=== PATIENT | female | born 1960 | race Caucasian/White ===

== ENCOUNTER → 2016-06-25 | Outpatient (CLI) | payer BC ==
--- NOTE | 2016-06-26 08:33 | MM ---
Reason for exam: screening (asymptomatic). Last mammogram was performed 1 year and 1 month ago. History: Patient is postmenopausal. Benign left US cyst aspiration of the left breast, June 03, 2007. Took hormonal contraceptives for 10 years beginning at age 24. Taking other hormone for 6 years beginning at age 42. Physical Findings: A clinical breast exam by your physician is recommended on an annual basis and results should be correlated with mammographic findings. MG Screening Mammo w CAD Bilateral CC and MLO view(s) were taken. XCCL view(s) were taken of the left breast. Prior study comparison: May 20, 2015, bilateral MG screening mammo w CAD. April 27, 2014, bilateral MG screening mammo w CAD. There are scattered fibroglandular densities. Finding: There are typically benign round calcifications. There is no discrete abnormality. No significant changes in finding since May 20, 2015 and April 27, 2014. ASSESSMENT: Benign, BI-RAD 2 RECOMMENDATION: Routine screening mammogram of both breasts in 1 year.
== END | disposition home or self-care (01) ==
LOC: RADMAMWWP 08:08
PROVIDERS: ATTEND Obstetrics & Gynecology
DX: Z12.31 Encounter for screening mammogram for malignant neoplasm of breast (principal)

== ENCOUNTER → 2016-12-07 | Outpatient (CLI) | payer BC ==
[2016-12-07 16:30] VITALS: BP 125/87; PULSE 84; RESP 16; TEMP 98.1; BMI 41.2
[2016-12-07 16:51] LABS: EKG EKG PERFORMED
[2016-12-07 17:11] LABS: CH 29.3; CHCM 31.9; HCT 40.8 % (34.0-46.0); HDW 2.18; HGB 13.6 gm/dL (11.4-16.0); MCH 30.7 pg (25.0-35.0); MCHC 33.3 g/dL (31.0-37.0); MCV 92.2 fL (80.0-100.0); RBC 4.43 m/uL (3.80-5.40); RDW 13.1 % (11.5-15.5); WBC 8.4 k/uL (3.8-10.6)
[2016-12-07 17:25] LABS: ALT 28 U/L (9-52); AST 20 U/L (14-36); Alkaline Phosphatase 76 U/L (38-126); Anion Gap 9 mmol/L; Blood Urea Nitrogen 14 mg/dL (7-17); Calcium 9.4 mg/dL (8.4-10.2); Carbon Dioxide 27 mmol/L (22-30); Chloride 106 mmol/L (98-107); Glucose 98 mg/dL (74-99); Non-African American GFR(MDRD) >60 (>60 ml/min/1.73 sqM); Potassium 4.1 mmol/L (3.5-5.1); Sodium 142 mmol/L (137-145); Total Bilirubin 0.4 mg/dL (0.2-1.3); Total Protein 6.6 g/dL (6.3-8.2)
[2016-12-07 18:12] LABS: Vitamin B12 472 pg/mL (239-931)
[2016-12-07 21:06] LABS: Hemoglobin A1C 6.4 % (4.2-6.1)
== END | disposition home or self-care (01) ==
LOC: BARWHC3 16:13
PROVIDERS: ATTEND Surgery
DX: Z01.818 Encounter for other preprocedural examination (principal); E66.01 Morbid (severe) obesity due to excess calories; E44.0 Moderate protein-calorie malnutrition; E55.9 Vitamin D deficiency, unspecified; Z68.41 Body mass index [BMI] 40.0-44.9, adult
CPT/HCPCS: 80053; 82306; 82607; 83036; 84443; 85027; 93005; 99201

== ENCOUNTER 2017-01-01 10:57 | Day surgery (SDC) | payer BC ==
[2016-12-30 10:10] VITALS: BMI 39.4
[2017-01-01 12:31] VITALS: RESP 16; TEMP 98.4
[2017-01-01] MEDS ORDERED: LACTATED RINGERS 1,000 ML IV ONE (12:32)
[2017-01-01] MEDS ORDERED: LIDOCAINE 1% 20 ML VIAL (10MG/ML) FOR IV START INTRADERMA ONE (12:32)
[2017-01-01] MEDS ORDERED: PROPOFOL 10 MG/ML 20 ML VIAL IV ONE (13:01)
--- NOTE | 2017-01-01 13:07 | P.GSHP ---
History of Present Illness H&P Date: 01/01/17 Chief Complaint: GERD This is a 56-year-old female for from Dr. Ranjana Knutson. Patient is a patient of GERD. She presents today for EGD. Past Medical History Past Medical History: Asthma, Hyperlipidemia, Osteoarthritis (OA), Thyroid Disorder History of Any Multi-Drug Resistant Organisms: None Reported Past Surgical History: Joint Replacement, Orthopedic Surgery, Tonsillectomy Additional Past Surgical History / Comment(s): BILAT TKA several revisional knee surgeries, left shoulder scope, cyst from right writst removed. PLATE TO RLE. BLE TENDON REPLACEMENT. COLONOSCOPY, EGD Past Anesthesia/Blood Transfusion Reactions: No Reported Reaction Smoking Status: Never smoker - Past Family History Father Family Medical History: Cancer Mother Family Medical History: Cancer Sister(s) Family Medical History: Deep Vein Thrombosis (DVT) Medications and Allergies Home Medications Medication Instructions Recorded Confirmed Type Citalopram Hydrobromide [CeleXA] 40 mg PO DAILY 12/04/16 12/30/16 History HYDROcodone/APAP 10-325MG [[place] 1 tab PO BID PRN 12/04/16 12/30/16 History 10-325] Levothyroxine Sodium [Synthroid] 125 mcg PO DAILY 12/04/16 12/30/16 History Meloxicam [Mobic] 15 mg PO DAILY 12/04/16 12/30/16 History Montelukast [Singulair] 10 mg PO DAILY 12/04/16 12/30/16 History Naproxen 500 mg PO DAILY PRN 12/04/16 12/30/16 History Phentermine HCl [Adipex-P] 37.5 mg PO DAILY 12/04/16 12/30/16 History Pregabalin [Lyrica] 100 mg PO TID 12/04/16 12/30/16 History Simvastatin [Zocor] 20 mg PO HS 12/04/16 12/30/16 History Allergies Allergy/AdvReac Type Severity Reaction Status Date / Time Penicillins Allergy Rash/Hives Verified 01/01/17 12:16 vancomycin Allergy Rash/Hives Verified 01/01/17 12:16 Surgical - Exam Vital Signs Temp Pulse Resp BP Pulse Ox 98.4 F 71 16 133/87 99 01/01/17 12:29 01/01/17 12:29 01/01/17 12:29 01/01/17 12:29 01/01/17 12:29 - General well developed, no distress - Eyes PERRL - ENT normal pinna - Neck no masses - Respiratory normal expansion - Cardiovascular Rhythm: regular - Abdomen Abdomen: soft, non tender Assessment and Plan Plan: GERD. We'll perform EGD.
--- NOTE | 2017-01-01 13:15 | P.OP ---
Date of Procedure: 01/01/17 Preoperative Diagnosis: GERD Postoperative Diagnosis: Antral gastritis Hiatal hernia Esophagitis Procedure(s) Performed: EGD Implants: Anesthesia: KARYN Surgeon: Singh Springer Pathology: other (Antrum, esophagus) Condition: stable Disposition: PACU Indications for Procedure: Operative Findings: Description of Procedure: The patient's placed on the endoscopy table in the lateral position. She received IV sedation. The gastroscope some placed oropharynx passed into the esophagus and into the stomach. The scope was then placed through the pylorus. The first and second portion of the duodenum appeared normal. Scope was then brought back the antrum this appeared mildly inflamed. A biopsies performed. The scope was unretroflexed and remainder stomach appeared normal. The GE junction was at 38 cm. There appeared to be evidence of a hiatal hernia. The distal esophagus was inflamed a biopsies performed. The proximal esophagus appeared normal. Scope was withdrawn for patient.
[2017-01-01 13:41] VITALS: BP 128/82; PULSE 58
== END 2017-01-01 14:19 | disposition home or self-care (01) ==
LOC: ORWHC2ENDO 10:57
PROVIDERS: ATTEND Surgery
DX: K21.0 Gastro-esophageal reflux disease with esophagitis (principal); K44.9 Diaphragmatic hernia without obstruction or gangrene; K29.50 Unspecified chronic gastritis without bleeding; E07.9 Disorder of thyroid, unspecified; E78.5 Hyperlipidemia, unspecified; M19.90 Unspecified osteoarthritis, unspecified site; J45.909 Unspecified asthma, uncomplicated; Z79.1 Long term (current) use of non-steroidal anti-inflammatories (NSAID); Z79.899 Other long term (current) drug therapy; Z88.1 Allergy status to other antibiotic agents; Z88.0 Allergy status to penicillin; Z96.653 Presence of artificial knee joint, bilateral
CPT/HCPCS: 88305; 88342; 43239; J2704

== ENCOUNTER → 2017-01-25 | Outpatient (CLI) | payer BC ==
[2017-01-25 13:43] VITALS: BP 140/83; PULSE 83; TEMP 98.2; BMI 41.3
--- NOTE | 2017-01-25 15:13 | P.HPBAR ---
Bariatric H&P - History & Physicial H&P Date: 01/25/17 History & Physicial: Visit/CC: presurgical visit Patient initial contact: 11/24/16 Initial weight: 108.919 kg Initial weight in pounds: 240.13 Height: 5 ft 4 in Initial BMI: 41.2 Last weight: Current weight: 109.225 kg Current weight in pounds: 240.80 Current BMI: 41.3 Bowie body weight (based on NIH guidelines): 54.431 kg Excess body weight loss: The patient is a 57 year-old F who presents for Bariatric Assessment. Patient presents today for sleeve gastrectomy consultation. She is undergone a recent EGD. She's had some mild GERD. The patient's last several months of physician directed weight loss visits prior to being authorized for surgery. Past Medical History Past Medical History: Osteoarthritis (OA) History of Any Multi-Drug Resistant Organisms: None Reported Past Surgical History: Orthopedic Surgery, Tonsillectomy Additional Past Surgical History / Comment(s): bilateral knee replacement several revisional knee surgeries left shoulder scope cyst from right writst removed Past Anesthesia/Blood Transfusion Reactions: No Reported Reaction Past Psychological History: No Psychological Hx Reported Smoking Status: Never smoker Past Alcohol Use History: Occasional Past Drug Use History: None Reported - Past Family History Father Family Medical History: Cancer Mother Family Medical History: Cancer Sister(s) Family Medical History: Deep Vein Thrombosis (DVT) Surgical - Exam Vital Signs Temp Pulse BP 98.2 F 83 140/83 01/25/17 13:42 01/25/17 13:42 01/25/17 13:42 - General well developed, no distress - Eyes PERRL - ENT normal pinna - Neck no masses - Respiratory normal expansion - Abdomen Abdomen: soft, non tender Bariatric Assessment & Plan Plan: The patient was obese. Her BMI is 41. Her GERD symptoms are minimal. She will follow-up in 3 months. Bariatric Checklist Checklist: Plan: Checklist: EGD: 1. Hiatal hernia: 2. H. Pylori: HgbA1c: Vitamin D: Smoking: Never smoker Primary care physician referral: guy Psychiatry clearance: Cardiology clearance: Sleep study: Diet journal: VTE risk score: VTE risk level: Rehab needs at discharge:
== END ==
LOC: BARWHC3 13:16
PROVIDERS: ATTEND Surgery
DX: Z48.815 Encounter for surgical aftercare following surgery on the digestive system (principal); Z98.84 Bariatric surgery status; E66.9 Obesity, unspecified; K21.9 Gastro-esophageal reflux disease without esophagitis; Z68.41 Body mass index [BMI] 40.0-44.9, adult
CPT/HCPCS: 99211

== ENCOUNTER → 2017-08-10 | Outpatient (CLI) | payer BC ==
--- NOTE | 2017-08-11 13:58 | MM ---
Reason for exam: screening (asymptomatic). Last mammogram was performed 1 year and 1 month ago. History: Patient is postmenopausal. Benign left US cyst aspiration of the left breast, June 03, 2007. Took hormonal contraceptives for 10 years beginning at age 24. Taking other hormone for 6 years beginning at age 42. Physical Findings: A clinical breast exam by your physician is recommended on an annual basis and results should be correlated with mammographic findings. MG Screening Mammo w CAD Bilateral CC and MLO view(s) were taken. Prior study comparison: June 25, 2016, bilateral MG screening mammo w CAD. May 20, 2015, bilateral MG screening mammo w CAD. There are scattered fibroglandular densities. Previous mammotome biopsy in the left breast. Stable regional calcifications on the right breast. ASSESSMENT: Negative, BI-RAD 1 RECOMMENDATION: Routine screening mammogram of both breasts in 1 year.
== END | disposition home or self-care (01) ==
LOC: RADMAMWWP 09:26
PROVIDERS: ATTEND Obstetrics & Gynecology
DX: Z12.31 Encounter for screening mammogram for malignant neoplasm of breast (principal)
CPT/HCPCS: 77067

== ENCOUNTER → 2018-11-11 | Outpatient (CLI) | payer BC ==
--- NOTE | 2018-11-11 19:03 | MR ---
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 No brigette disruption. There is some ford rrounding edema signal present within the soft tissues. Proteus longus and brevis tendons show some f luid signal along their course but are intact. Subcutaneous edema change is also present over the paul sum of the foot and lateral aspect of the foot and ankle. Bone marrow signal is remarkable for probab le reactive marrow signal changes, there are arthropathy changes with marginal spurring and joint spa ce loss within the intertarsal joints and talonavicular joints. There is a plantar calcaneal spur. Achilles tendon and plantar aponeurosis are intact. Ankle mortise is intact. No evident ligamentous disruption. No sizable joint effusion. IMPRESSION: Longitudinal posterior tibial tendon tear. Osteoarthritis. Soft tissue edema. Additional findings above.
== END | disposition home or self-care (01) ==
LOC: RADMRIMAIN 09:00
PROVIDERS: ATTEND Podiatrist Foot & Ankle Surgery
DX: M19.072 Primary osteoarthritis, left ankle and foot (principal); M67.88 Other specified disorders of synovium and tendon, other site

== ENCOUNTER → 2019-01-03 | Outpatient (CLI) | payer BC ==
--- NOTE | 2019-01-04 10:56 | MM ---
Reason for exam: screening (asymptomatic). Last mammogram was performed 1 year and 5 months ago. History: Patient is postmenopausal. Benign left US cyst aspiration of the left breast, June 03, 2007. Took hormonal contraceptives for 10 years beginning at age 24. Taking other hormone for 6 years beginning at age 42. Physical Findings: A clinical breast exam by your physician is recommended on an annual basis and results should be correlated with mammographic findings. MG 3D Screening Mammo W/Cad Bilateral CC and MLO view(s) were taken. Prior study comparison: August 10, 2017, bilateral MG screening mammo w CAD. June 25, 2016, bilateral MG screening mammo w CAD. The breast tissue is heterogeneously dense. This may lower the sensitivity of mammography. Benign appearing bilateral calcifications. No suspicious abnormality. Left biopsy marker noted. No significant changes when compared with prior studies. ASSESSMENT: Benign, BI-RAD 2 RECOMMENDATION: Routine screening mammogram of both breasts in 1 year.
== END | disposition home or self-care (01) ==
LOC: RADMAMWWP 09:07
PROVIDERS: ATTEND Obstetrics & Gynecology
DX: Z12.31 Encounter for screening mammogram for malignant neoplasm of breast (principal)
CPT/HCPCS: 77063; 77067

== ENCOUNTER → 2019-01-20 | Outpatient (CLI) | payer BC ==
--- NOTE | 2019-01-22 13:38 | BD ---
EXAMINATION TYPE: Axial Bone Density DATE OF EXAM: 01/20/2019 COMPARISON: NONE CLINICAL HISTORY: 59 YR OLD FEMALE....ICD-10 CODE: N95.1 POST MENOPAUSAL Height: 62.4 Weight: 238 FRAX RISK QUESTIONS: History of Fracture in Adulthood: YES RISK FACTORS HISTORY OF: HX OF RT TIB FIB FRACTURE >50 YRS OLD, HX OF BOTH FEET BROKEN <50 YRS OLD Postmenopausal woman: YES AT AGE 52 Hyperparathyroidism: NO Adrenal Insufficiency: NO MEDICATIONS: Prednisone or other steroids: ON AND OFF ALLERGIC ASTHMA Thyroid Medications: YES, SYNTHROID FOR ABOUT 20 YRS Additional Medications: CELEXA, REFLUX MEDS, STATIN FOR CHOLESTEROL, VIT D, PAIN MEDS PRN, NSAIDS Additional History: BILAT TKRs, LT SHOULDER REPLACED, PLATED TIB-FIB FOR FX, OSTEOARTHRITIS, EXAM MEASUREMENTS: Bone mineral densitometry was performed using the [employer] System. Bone mineral density as measured about the Lumbar spine is: ----- L1-L4(G/cm2): 1.190 T Score Values are as follows: ----- L1: 0.0 ----- L2: 0.8 ----- L3: 0.4 ----- L4: -0.8 ----- L1-L4: 0.1 Bone mineral density FIRST DEXA SCAN......BASELINE STUDY Bone mineral density about the R hip (g/cm2): 1.042 Bone mineral density about the L hip (g/cm2): 1.090 T Score values are as follows: -----R Neck: -1.0 -----L Neck: -0.6 -----R Total: 0.3 -----L Total: 0.7 Bone mineral density BASELINE STUDY FRAX%s: THERE IS A 10.3% CHANCE FOR A MAJOR OSTEOPOROTIC FX AND A 0.5% FOR HIP.....PROBABILITY FOR FX IN 10 YRS TIME IMPRESSION: Normal (Values between +1 and -1 indicate normal bone mass). Consider repeating this study in 5 year s or sooner if there is some new clinical indication. NOTE: T-SCORE=SD OF THE YOUNG ADULT MEAN.
== END | disposition home or self-care (01) ==
LOC: RADBDWWP 09:50
PROVIDERS: ATTEND Obstetrics & Gynecology
DX: N95.1 Menopausal and female climacteric states (principal)
CPT/HCPCS: 77080

== ENCOUNTER → 2020-04-12 | Outpatient (CLI) | payer BC ==
--- NOTE | 2020-04-15 09:49 | MM ---
Reason for exam: screening (asymptomatic). Last mammogram was performed 1 year and 3 months ago. History: Patient is postmenopausal. Benign left US cyst aspiration of the left breast, June 03, 2007. Took hormonal contraceptives for 10 years beginning at age 24. Taking other hormone for 6 years beginning at age 42. Physical Findings: A clinical breast exam by your physician is recommended on an annual basis and results should be correlated with mammographic findings. MG 3D Screening Mammo W/Cad Bilateral CC and MLO view(s) were taken. Prior study comparison: January 03, 2019, bilateral MG 3d screening mammo w/cad. August 10, 2017, bilateral MG screening mammo w CAD. The breast tissue is heterogeneously dense. This may lower the sensitivity of mammography. New nodule central outer left breast anterior third position. ASSESSMENT: Incomplete: need additional imaging evaluation, BI-RAD 0 RECOMMENDATION: Special view mammogram of the right breast. If lesion persists on supplemental views, image directed ultrasound is recommended. [facility] will attempt to contact patient to return for supplemental views and ultrasound if indicated.
== END | disposition home or self-care (01) ==
LOC: RADMAMWWP 09:34
PROVIDERS: ATTEND Obstetrics & Gynecology
DX: Z12.31 Encounter for screening mammogram for malignant neoplasm of breast (principal)
CPT/HCPCS: 77063; 77067

== ENCOUNTER → 2020-04-17 | Outpatient (CLI) | payer BC ==
--- NOTE | 2020-04-17 09:39 | MM ---
Reason for exam: additional evaluation requested from abnormal screening. Last mammogram was performed less than 1 month ago. History: Patient is postmenopausal. Benign left US cyst aspiration of the left breast, June 03, 2007. Took hormonal contraceptives for 10 years beginning at age 24. Taking other hormone for 6 years beginning at age 42. Physical Findings: Nurse did not find any significant physical abnormalities on exam. MG 3D Work Up W/Cad RT Spot compression CC, spot compression MLO, and LM view(s) were taken of the right breast. Prior study comparison: April 12, 2020, bilateral MG 3d screening mammo w/cad. January 03, 2019, bilateral MG 3d screening mammo w/cad. Nodular density upper outer quadrant right breast 4.3cm from nipple. These results were verbally communicated with the patient and result sheet given to the patient on 04/17/20. ASSESSMENT: Incomplete: need additional imaging evaluation, BI-RAD 0 RECOMMENDATION: Ultrasound of the right breast.
--- NOTE | 2020-04-17 09:44 | USB ---
Reason for exam: additional evaluation requested from abnormal screening. History: Patient is postmenopausal. Benign left US cyst aspiration of the left breast, June 03, 2007. Took hormonal contraceptives for 10 years beginning at age 24. Taking other hormone for 6 years beginning at age 42. US Breast Workup Limited RT Right limited breast ultrasound including focal area of concern, retroareolar and axilla demonstrates a 8mm oval lipoma at 12 o'clock. These results were verbally communicated with the patient and result sheet given to the patient on 04/17/20. ASSESSMENT: Probably benign, BI-RAD 3 RECOMMENDATION: Follow-up diagnostic mammogram of the right breast in 6 months.
== END | disposition home or self-care (01) ==
LOC: RADMAMWWP 07:52
PROVIDERS: ATTEND Obstetrics & Gynecology
DX: R92.8 Other abnormal and inconclusive findings on diagnostic imaging of breast (principal)
CPT/HCPCS: 77061; 77065

== ENCOUNTER → 2020-11-06 | Outpatient (CLI) | payer BC ==
--- NOTE | 2020-11-06 14:45 | MM ---
Reason for exam: follow-up at short interval from prior study. Last mammogram was performed 7 months ago. History: Patient is postmenopausal. Benign left US cyst aspiration of the left breast, June 03, 2007. Took hormonal contraceptives for 10 years beginning at age 24. Taking other hormone for 6 years beginning at age 42. Physical Findings: Nurse did not find any significant physical abnormalities on exam. MG 3D Diag Mammo W/Cad RT CC and MLO view(s) were taken of the right breast. Prior study comparison: April 17, 2020, right breast MG 3d work up w/cad RT. April 12, 2020, bilateral MG 3d screening mammo w/cad. January 03, 2019, bilateral MG 3d screening mammo w/cad. There are scattered fibroglandular densities. Right breast asymmetry no longer seen. These results were verbally communicated with the patient and result sheet given to the patient on 11/06/20. ASSESSMENT: Benign, BI-RAD 2 RECOMMENDATION: Return to routine screening mammogram schedule for both breasts. Back on schedule.
== END | disposition home or self-care (01) ==
LOC: RADMAMWWP 13:29
PROVIDERS: ATTEND Obstetrics & Gynecology
DX: R92.8 Other abnormal and inconclusive findings on diagnostic imaging of breast (principal); Z78.0 Asymptomatic menopausal state
CPT/HCPCS: 77061; 77065

== ENCOUNTER 2020-12-05 15:19 | Emergency (ER) | payer BC ==
[2020-12-05 15:30] VITALS: RESP 18; TEMP 98.6
[2020-12-05] MEDS ORDERED: SODIUM CHLORIDE 0.9% 1,000 ML IV STA (16:11)
[2020-12-05] MEDS ORDERED: METOCLOPRAMIDE 5 MG/ML 2 ML VIAL IVP STA (16:11)
[2020-12-05 16:13] LABS: Glucose,Whole Blood 127 mg/dL (75-99)
--- NOTE | 2020-12-05 16:16 | ED ---
General Adult HPI - General Chief complaint: Neuro Symptoms/Deficit Stated complaint: Chest pain Time Seen by Provider: 12/05/20 15:55 Source: patient Mode of arrival: ambulatory Limitations: no limitations - History of Present Illness Initial comments: Dictation was produced using [employer] dictation software. please excuse any grammatical, word or spelling errors. Chief Complaint: 60-year-old female presents to the emergency department for vomiting, hot flash and left-sided paresthesias History of Present Illness: And is a 60-year-old female she states that today she had some hot flashes. She had 2 or 3 episodes today. Patient has been having these hot flashes chronically for the last several weeks. She was at work when she had her initial episode. She left work and was able to get back home when she had another episode where she became diaphoretic sweaty. She also had nonbilious nonbloody emesis. Patient has had these hot flashes in the past however is never associated with severe dizziness to the point where she was vomiting. Patient is never diagnosed with vertigo in the past. Furthermore, patient has associated left hand and left foot paresthesias. Denies any weakness of extremities. She had recent left femur surgery and has difficulty moving her left leg. She does feel lightheaded still. She does report that feels like the room is spinning. Denies any exacerbation with head movements. At the bedside however she feels much better than earlier today. The ROS documented in this emergency department record has been reviewed and confirmed by me. Those systems with pertinent positive or negative responses have been documented in the HPI. All other systems are other negative and/or noncontributory. PHYSICAL EXAM: General Impression: Alert and oriented x3, not in acute distress HEENT: Normocephalic atraumatic, extra-ocular movements intact, pupils equal and reactive to light bilaterally, mucous membranes moist. Cardiovascular: Heart regular rate and rhythm Chest: Able to complete full sentences, no retractions, no tachypnea Abdomen: abdomen soft, non-tender, non-distended, no organomegaly Musculoskeletal: Pulses present and equal in all extremities, no peripheral edema Motor: no focal deficits noted Neurological: CN II-XII grossly intact, no focal motor deficits, intact to light touch of the entire left foot and left upper and lower extremity there is fatiguable nystagmus with rightward gaze Skin: Intact with no visualized rashes Psych: Normal affect and mood ED course: 60-year-old female presents to the emergency department for multiple complaints. Complaints include dizziness, hot flashes and paresthesias to the left hand and left foot. Vital signs upon arrival are within acceptable limits. Laboratory evaluation obtained. CBC, metabolic panel is within acceptable limits. Computed tomography scan of the brain shows no acute processes. Patient given IV fluids and Reglan. She is observed in emergency department for approximately 2 hours and 30 minutes. Reevaluated at bedside at 5:50 PM found to be in stable medical condition. States that her symptoms are completely resolved. Well and wants to be discharge. At this point her symptoms are very atypical for cerebrovascular accident. She is well-appearing at bedside. Patient agreeable for discharge patient told to follow-up with primary care physician. Prescription for antinausea and anti-emetics. EKG interpretation: Ventricular rate 63, normal sinus rhythm,. Interval 180, QRS 114, QTc 478. No MD prolongation, no QTC prolongation, no ST or T-wave changes noted. EKG compared to 12/07/2016 showing no changes. Overall, this EKG is unremarkable - Related Data Home Medications Medication Instructions Recorded Confirmed Citalopram Hydrobromide [CeleXA] 40 mg PO DAILY 12/04/16 12/05/20 HYDROcodone/APAP 10-325MG [[place] 1 tab PO BID PRN 12/04/16 12/05/20 10-325] Levothyroxine Sodium [Synthroid] 125 mcg PO DAILY 12/04/16 12/05/20 Meloxicam [Mobic] 15 mg PO DAILY 12/04/16 12/05/20 Montelukast [Singulair] 10 mg PO HS 12/04/16 12/05/20 Simvastatin [Zocor] 20 mg PO HS 12/04/16 12/05/20 Omalizumab [Xolair] 625 mg SQ QMONTHLY 12/05/20 12/05/20 Omeprazole 20 mg PO MOWEFR 12/05/20 12/05/20 Pregabalin [Lyrica] 150 mg PO TID 12/05/20 12/05/20 diazePAM [Valium] 2 mg PO BID PRN 12/05/20 12/05/20 Previous Rx's Medication Instructions Recorded Metoclopramide [Reglan] 10 mg PO TID PRN #24 tab 12/05/20 Allergies Allergy/AdvReac Type Severity Reaction Status Date / Time Penicillins Allergy Rash/Hives Verified 12/05/20 16:51 vancomycin Allergy Rash/Hives Verified 12/05/20 16:51 cephalexin [From Keflex] AdvReac Nausea & Verified 12/05/20 16:51 Vomiting Review of Systems ROS Statement: Those systems with pertinent positive or pertinent negative responses have been documented in the HPI. ROS Other: All systems not noted in ROS Statement are negative. Past Medical History Past Medical History: Osteoarthritis (OA) History of Any Multi-Drug Resistant Organisms: None Reported Past Surgical History: Orthopedic Surgery, Tonsillectomy Additional Past Surgical History / Comment(s): bilateral knee replacement several revisional knee surgeries left shoulder scope cyst from right writst removed Past Anesthesia/Blood Transfusion Reactions: No Reported Reaction Past Psychological History: No Psychological Hx Reported Smoking Status: Never smoker Past Alcohol Use History: Occasional Past Drug Use History: None Reported - Past Family History Father Family Medical History: Cancer Mother Family Medical History: Cancer Sister(s) Family Medical History: Deep Vein Thrombosis (DVT) General Exam Limitations: no limitations Course Vital Signs 12/05/20 12/05/20 15:26 16:30 Temperature 98.6 F Pulse Rate 74 Respiratory 18 18 Rate Blood Pressure 138/68 O2 Sat by Pulse 100 Oximetry Medical Decision Making - Lab Data Result diagrams: 12/05/20 16:12 12/05/20 16:12 Lab Results 12/05/20 12/05/20 12/05/20 Range/Units 16:08 16:12 16:12 WBC 8.1 (3.8-10.6) k/uL RBC 4.73 (3.80-5.40) m/uL Hgb 14.0 (11.4-16.0) gm/dL Hct 42.8 (34.0-46.0) % MCV 90.5 (80.0-100.0) fL MCH 29.6 (25.0-35.0) pg MCHC 32.7 (31.0-37.0) g/dL RDW 13.3 (11.5-15.5) % Plt Count 313 (150-450) k/uL MPV 7.4 Neutrophils % 63 % Lymphocytes % 30 % Monocytes % 4 % Eosinophils % 2 % Basophils % 0 % Neutrophils # 5.1 (1.3-7.7) k/uL Lymphocytes # 2.4 (1.0-4.8) k/uL Monocytes # 0.3 (0-1.0) k/uL Eosinophils # 0.2 (0-0.7) k/uL Basophils # 0.0 (0-0.2) k/uL Sodium 137 (137-145) mmol/L Potassium 3.5 (3.5-5.1) mmol/L Chloride 105 (98-107) mmol/L Carbon Dioxide 22 (22-30) mmol/L Anion Gap 10 mmol/L BUN 11 (7-17) mg/dL Creatinine 0.71 (0.52-1.04) mg/dL Est GFR (CKD-EPI)AfAm >90 (>60 ml/min/1.73 sqM) Est GFR (CKD-EPI)NonAf >90 (>60 ml/min/1.73 sqM) Glucose 142 H (74-99) mg/dL POC Glucose (mg/dL) 127 H (75-99) mg/dL POC [employer] Planner ID Richard Diez Calcium 9.6 (8.4-10.2) mg/dL Magnesium 2.0 (1.6-2.3) mg/dL Disposition Clinical Impression: Nausea & vomiting, Paresthesia Disposition: HOME SELF-CARE Condition: Fair Instructions (If sedation given, give patient instructions): Acute Nausea and Vomiting (ED) Prescriptions: Metoclopramide [Reglan] 10 mg PO TID PRN #24 tab PRN Reason: dizziness Is patient prescribed a controlled substance at d/c from ED?: No Referrals: Stuart Knutson MD [Primary Care Provider] - 1-2 days
[2020-12-05 16:23] LABS: Basophils % (A) 0 %; Eosinophils # (A) 0.2 k/uL (0-0.7); Eosinophils % (A) 2 %; HCT 42.8 % (34.0-46.0); Lymphocytes # (A) 2.4 k/uL (1.0-4.8); Lymphocytes % (A) 30 %; MCH 29.6 pg (25.0-35.0); MCHC 32.7 g/dL (31.0-37.0); MCV 90.5 fL (80.0-100.0); Mean Platelet Volume 7.4; Monocytes # (A) 0.3 k/uL (0-1.0); Monocytes % (A) 4 %; Neutrophils # (A) 5.1 k/uL (1.3-7.7); Neutrophils % (A) 63 %; Platelet Count 313 k/uL (150-450); RBC 4.73 m/uL (3.80-5.40); RDW 13.3 % (11.5-15.5); WBC 8.1 k/uL (3.8-10.6)
[2020-12-05 16:33] LABS: African American GFR (CKD) >90 (>60 ml/min/1.73 sqM); Anion Gap 10 mmol/L; Blood Urea Nitrogen 11 mg/dL (7-17); Calcium 9.6 mg/dL (8.4-10.2); Carbon Dioxide 22 mmol/L (22-30); Chloride 105 mmol/L (98-107); Glucose 142 mg/dL (74-99); Non-African American GFR(CKD) >90 (>60 ml/min/1.73 sqM); Potassium 3.5 mmol/L (3.5-5.1); Sodium 137 mmol/L (137-145)
--- NOTE | 2020-12-05 16:47 | CT ---
EXAM: CT brain wo con CLINICAL HISTORY: Near syncope. COMPARISON: None TECHNIQUE: Contiguous axial noncontrast images of the brain were obtained. Coronal and sagittal refor mats were generated and reviewed. Automated dose control was used for this exam. FINDINGS: There is no evidence for intracranial hemorrhage, mass effect or midline shift. The white matter is g rossly preserved. Ventricular size and configuration is within normal limits for degree of parenchymal volume. The paranasal sinuses demonstrate mild to moderate disease. The mastoid air cells are clear. No evidence for calvarial fracture. IMPRESSION: No acute intracranial abnormality.
[2020-12-05 18:26] VITALS: BP 136/76; PULSE 68
== END 2020-12-05 18:28 | disposition home or self-care (01) ==
LOC: EC 15:19
DX: R11.2 Nausea with vomiting, unspecified (principal); R20.2 Paresthesia of skin; R42 Dizziness and giddiness; M19.90 Unspecified osteoarthritis, unspecified site; R07.9 Chest pain, unspecified; Z88.0 Allergy status to penicillin; Z88.1 Allergy status to other antibiotic agents; Z79.1 Long term (current) use of non-steroidal anti-inflammatories (NSAID)
CPT/HCPCS: 96374; 96361; 99285; 36415; 93005; 80048; 83735; 85025; 70450; J2765

== ENCOUNTER → 2022-03-31 | Outpatient (CLI) | payer BC ==
--- NOTE | 2022-04-01 10:15 | MM ---
Reason for Exam: Screening (asymptomatic). Last mammogram was performed 2 year(s) and 0 month(s) ago. Patient History: Menarche at age 11. First Full-Term at age 26. Postmenopausal. Hormonal Contraceptives for 10 years from age 24 until age 34. 06/03/2007, Benign Cyst Aspiration on the left side. Risk Values: Alyx 5 year model risk: 1.9%. NCI Lifetime model risk: 8.4%. Prior Study Comparison: 04/12/2020 Bilateral Screening Mammogram, [facility]. 04/17/2020 Right Diagnostic Mammogram, [facility]. 11/06/2020 Right Diagnostic Mammogram, [facility]. Tissue Density: The breast tissue is heterogeneously dense. This may lower the sensitivity of mammography. Findings: Analyzed By CAD. Mammotome biopsy clip left breast is redemonstrated. There are a few scattered benign-appearing round calcifications bilaterally redemonstrated. Benign-appearing dystrophic calcifications anteriorly left breast. There is no suspicious new group of microcalcifications or new suspicious mass in either breast. Overall Assessment: Benign, BI-RAD 2 Management: Screening Mammogram of both breasts in 1 year. A clinical breast exam by your physician is recommended on an annual basis and results should be correlated with mammographic findings. Electronically signed and approved by: Micheal Uribe M.D.
== END | disposition home or self-care (01) ==
LOC: RADMAMWWP 15:51
PROVIDERS: ATTEND Obstetrics & Gynecology
DX: Z12.31 Encounter for screening mammogram for malignant neoplasm of breast (principal); Z78.0 Asymptomatic menopausal state
CPT/HCPCS: 77063; 77067

== ENCOUNTER → 2023-04-08 | Outpatient (CLI) | payer BC ==
--- NOTE | 2023-04-09 09:01 | MM ---
Reason for Exam: Screening (asymptomatic). Last screening mammogram was performed 12 month(s) ago. Patient History: Menarche at age 11. First Full-Term at age 26. Postmenopausal. Hormonal Contraceptives for 10 years from age 24 until age 34. 06/03/2007, Benign Cyst Aspiration on the left side. Risk Values: Alyx 5 year model risk: 1.9%. NCI Lifetime model risk: 8.1%. Prior Study Comparison: 04/17/2020 Right Diagnostic Mammogram, [facility]. 11/06/2020 Right Diagnostic Mammogram, [facility]. 03/31/2022 Bilateral MG 3D screening mammo w/cad, [facility]. Tissue Density: There are scattered fibroglandular densities. Findings: Analyzed By CAD. There is no suspicious group of microcalcifications or new suspicious mass. Benign-appearing calcifications bilaterally. Overall Assessment: Benign, BI-RAD 2 Management: Screening Mammogram of both breasts in [address] [facility] will attempt to contact patient to return for supplemental views and ultrasound if indicated. Patient should continue monthly self-breast exams. A clinical breast exam by your physician is recommended on an annual basis. This exam should not preclude additional follow-up of suspicious palpable abnormalities. Note on Alyx scores and lifetime risk: 1. A Alyx score greater than 3% is considered moderate risk. If this is the case, consider specialist referral to assess eligibility for a risk reducing agent. 2. If overall lifetime risk for the development of breast cancer is 20% or higher, the patient may qualify for future screening with alternating mammogram and breast MRI. Electronically signed and approved by: Isaac Carey DO
== END | disposition home or self-care (01) ==
LOC: RADMAMWWP 07:45
PROVIDERS: ATTEND Obstetrics & Gynecology
DX: Z12.31 Encounter for screening mammogram for malignant neoplasm of breast (principal); Z78.0 Asymptomatic menopausal state
CPT/HCPCS: 77063; 77067

== ENCOUNTER → 2024-04-12 | Outpatient (CLI) | payer BC, MEDICARE ==
--- NOTE | 2024-04-13 08:46 | MM ---
Reason for Exam: Screening (asymptomatic). Last screening mammogram was performed 12 month(s) ago. Patient History: Menarche at age 11. First Full-Term at age 26. Postmenopausal. Hormonal Contraceptives for 10 years from age 24 until age 34. 06/03/2007, Benign Cyst Aspiration on the left side. Risk Values: Alyx 5 year model risk: 2.0%. NCI Lifetime model risk: 7.9%. Prior Study Comparison: 11/06/2020 Right Diagnostic Mammogram, [facility]. 03/31/2022 Bilateral MG 3D screening mammo w/cad, [facility]. 04/08/2023 Bilateral MG 3D screening mammo w/cad, [facility]. Tissue Density: The breasts are heterogeneously dense, which may obscure small masses. Findings: Analyzed By CAD. New asymmetric density upper outer right breast with adjacent nodule proximally 4 cm from the nipple. Additional views are recommended. Benign calcified seen bilaterally. Microclip markers left breast. Overall Assessment: Incomplete: need additional imaging evaluation, BI-RAD 0 Management: Diagnostic Mammogram of the left breast. . Patient should continue monthly self-breast exams. A clinical breast exam by your physician is recommended on an annual basis. This exam should not preclude additional follow-up of suspicious palpable abnormalities. Note on Alyx scores and lifetime risk: 1. A Alyx score greater than 3% is considered moderate risk. If this is the case, consider specialist referral to assess eligibility for a risk reducing agent. 2. If overall lifetime risk for the development of breast cancer is 20% or higher, the patient may qualify for future screening with alternating mammogram and breast MRI. [facility], , 04/13/2024 8:42 AM. Electronically signed and approved by: Antoine Dailey M.D. Radiologis
== END | disposition home or self-care (01) ==
LOC: RADMAMWWP 10:02
PROVIDERS: ATTEND Family Medicine
DX: Z12.31 Encounter for screening mammogram for malignant neoplasm of breast (principal); Z78.0 Asymptomatic menopausal state; R92.333 Mammographic heterogeneous density, bilateral breasts
CPT/HCPCS: 77063; 77067

== ENCOUNTER → 2024-04-27 | Outpatient (CLI) | payer MEDICARE ==
--- NOTE | 2024-04-27 09:33 | MM ---
Reason for Exam: Additional evaluation requested from abnormal screening. Last screening mammogram was performed less than 1 month ago. Patient History: Menarche at age 11. First Full-Term at age 26. Postmenopausal. Hormonal Contraceptives for 10 years from age 24 until age 34. 06/03/2007, Benign Cyst Aspiration on the left side. Risk Values: Alyx 5 year model risk: 2.0%. NCI Lifetime model risk: 7.9%. Prior Study Comparison: 04/17/2020 Right Diagnostic Ultrasound, [facility]. 11/06/2020 Right Diagnostic Mammogram, [facility]. 03/31/2022 Bilateral MG 3D screening mammo w/cad, [facility] 04/08/2023 Bilateral MG 3D screening mammo w/cad, [facility]. 04/12/2024 Bilateral MG 3D screening mammo w/cad, [facility]. Tissue Density: Right: There are scattered areas of fibroglandular density. Findings: Analyzed By CAD. The pattern is stable. There are scattered benign appearing punctate calcifications upper outer right breast. No suspicious persistent asymmetry evident No suspicious groups of microcalcifications, spiculated or lobular masses, architectural distortion or other secondary signs of malignancy are mammographically apparent. Overall Assessment: Probably benign, BI-RAD 3 Management: Diagnostic Mammogram of the right breast in 6 months. A negative mammogram report should not preclude additional follow up of suspicious palpable abnormalities. Patient should continue monthly self breast exam. A clinical breast exam by your physician is recommended on an annual basis and results should be correlated with mammographic findings. Note on Alyx scores and lifetime risk: 1. A Alyx score greater than 3% is considered moderate risk. If this is the case, consider specialist referral to assess eligibility for a risk reducing agent. 2. If overall lifetime risk for the development of breast cancer is 20% or higher, the patient may qualify for future screening with alternating mammogram and breast MRI. [facility], , 04/27/2024 9:13 AM. Electronically signed and approved by: Maynor Headley D.O. Radiologis
== END | disposition home or self-care (01) ==
LOC: RADMAMWWP 08:37
PROVIDERS: ATTEND Family Medicine
DX: R92.8 Other abnormal and inconclusive findings on diagnostic imaging of breast (principal); R92.323 Mammographic fibroglandular density, bilateral breasts; Z78.0 Asymptomatic menopausal state
CPT/HCPCS: 77065; G0279; 77061